=== PATIENT | female | born 1970 | race Caucasian/White ===

== ENCOUNTER → 2016-09-24 | Outpatient (CLI) | payer BC, OTHER ==
[~2016-09-24] MED LIST: ATV5X PO; BSP/10 PO; CYCL10TA6 PO; DILT120C41 PO; PROG100C6 PO; PROM12.57 PO
--- NOTE | 2016-09-24 15:58 | DIAGNOSTIC IMAGING REPORT ---
THYROID ULTRASONOGRAPHY CLINICAL HISTORY: Thyroid nodule COMPARISON STUDY: January 16, 2015 FINDINGS: The right lobe of the thyroid measures 4.4 x 1.6 x 1.4 cm. The left lobe measures 5.1 x 1.5 x 1.5 cm. Both lobes are heterogeneous in echotexture. There is a circumscribed anechoic left lobe thyroid nodule measuring 4 mm. IMPRESSION: Heterogeneous thyroid gland. 4 mm circumscribed anechoic left lobe thyroid nodule. No suspicious nodules are visualized. Electronically signed by: Jose Hughes M.D. 09/24/2016 3:57 PM Dictated Date/Time: 09/24/2016 3:55 PM
== END | disposition home or self-care (01) ==
LOC: C.ULTR 15:38
PROVIDERS: ATTEND Nurse Practitioner
DX: E04.1 Nontoxic single thyroid nodule (principal)

== ENCOUNTER → 2016-10-07 | Outpatient (CLI) | payer BC, OTHER ==
--- NOTE | 2016-10-07 15:46 | DIAGNOSTIC IMAGING REPORT ---
RIGHT ANKLE MIN 3 VIEWS CLINICAL HISTORY: Right ankle pain COMPARISON: None. DISCUSSION: No fractures or subluxations are visualized. The ankle mortise appears intact on these nonstress views. There is an Achilles insertional spur. IMPRESSION: No evidence of fracture. No evidence of erosive disease. Electronically signed by: Jose Hughes M.D. 10/07/2016 3:45 PM Dictated Date/Time: 10/07/2016 3:44 PM
--- NOTE | 2016-10-07 15:47 | DIAGNOSTIC IMAGING REPORT ---
LEFT ANKLE MIN 3 VIEWS CLINICAL HISTORY: Left ankle pain COMPARISON: None. DISCUSSION: No fractures are visualized. There are no subluxations. There is no erosive disease. IMPRESSION: No evidence of fracture. No evidence of erosive disease. Electronically signed by: Jose Hughes M.D. 10/07/2016 3:45 PM Dictated Date/Time: 10/07/2016 3:45 PM
== END | disposition home or self-care (01) ==
LOC: C.RDSM 15:30
PROVIDERS: ATTEND Family Medicine
DX: M25.571 Pain in right ankle and joints of right foot (principal); M25.572 Pain in left ankle and joints of left foot

== ENCOUNTER → 2016-12-17 | Outpatient (CLI) | payer BC, OTHER ==
[2016-12-17 12:37] LABS: ALT/SGPT 16 U/L (12-78); AST/SGOT 7 U/L (15-37); BLOOD UREA NITROGEN 14 mg/dl (7-18); BUN/CREATININE RATIO 19.4 (10-20); CALCIUM 8.8 mg/dl (8.5-10.1); CARBON DIOXIDE 26 mmol/L (21-32); CHLORIDE 107 mmol/L (98-107); CHOLESTEROL 205 mg/dl (0-200); CREATININE 0.71 mg/dl (0.60-1.20); GLUCOSE 83 mg/dl (70-99); POTASSIUM 3.9 mmol/L (3.5-5.1); SODIUM 140 mmol/L (136-145); TRIGLYCERIDES 102 mg/dl (0-150); VERY LOW DENSITY LIPOPROT CALC 20 mg/dl
[2016-12-17 12:47] LABS: ALB/GLOB RATIO 1.2 (0.9-2); ALKALINE PHOSPHATASE 37 U/L (45-117); CHOLESTEROL/HDL RATIO 3.3; HDL CHOLESTEROL 62 mg/dl; LDL CHOLESTEROL CALCULATED 123 mg/dl
== END | disposition home or self-care (01) ==
LOC: C.LABBFT 07:31
PROVIDERS: ATTEND Nurse Practitioner
DX: E78.5 Hyperlipidemia, unspecified (principal); I10 Essential (primary) hypertension

== ENCOUNTER 2017-02-25 11:37 | Emergency (ER) | payer OTHER, BC ==
[~2017-02-25] VITALS: Ht 157.5 cm; Wt 65.8 kg
[~2017-02-25 11:37] MED LIST changes: -CYCL10TA6 PO
[2017-02-25 11:40] VITALS: BP 154/100; PULSE 74; TEMP 37.1; O2SAT 96; Ht 157.5 cm; Wt 65.8 kg
[2017-02-25] MEDS ORDERED: ACETAMINOPHEN 500 MG TAB PO STA (11:48)
--- NOTE | 2017-02-25 12:13 | EMERGENCY ROOM VISIT NOTE ---
ED Visit Note First contact with patient: 11:44 CHIEF COMPLAINT: Wrist injury HISTORY OF PRESENT ILLNESS: This 46-year-old female patient presents to the emergency department by personal vehicle complaining of pain in the right hand and wrist after an injury 2 days ago. The patient states she was running, tripped and fell forward landing on both of her knees and her right outstretched hand. The patient is able to move their wrist. The patient states the pain is aching/throbbing and 6/10. No laceration, no weakness. No numbness or tingling. She also complains of some muscle pain that has developed in her left upper shoulder and back. The patient denies any other injury. The patient is able to move their fingers, elbows, and shoulders without difficulty. The patient has not had a previous fracture to this wrist. The patient has taken ibuprofen and applied ice for the pain, with minimal improvement. She is right- hand dominant. REVIEW OF SYSTEMS: A 6 system review of systems was performed with positives and pertinent negatives in the HPI. ALLERGIES: Reviewed in chart MEDICATIONS: Reviewed in chart PMH: Reviewed in chart SOCIAL HISTORY: Lives at home. Denies tobacco use, alcohol, recreational drug use. PHYSICAL EXAM: Vital Signs: Reviewed Nurse's notes, vital signs stable. GENERAL : Pleasant and cooperative, in no acute distress, but appears to be in pain, well-developed, well-nourished. NEURO: Alert and oriented to person place and time. Normal sensation to light and sharp touch. MUSCULOSKELETAL: There is no deformity of the right wrist. There is tenderness, bruising, and edema over distal right wrist and thenar eminence. There is snuff box tenderness. Range of motion is intact, slightly limited due to pain. There is no tenderness of the elbow, hand or fingers. Enzyme Chemist strength 5/5. Radial pulse 2+. There is tenderness of the left posterior shoulder and upper back to palpation, mild muscle spasm noted. There is full range of motion of the left shoulder joint with no pain. There is no neck pain or midline tenderness. SKIN: Normal and intact. The hand is warm and well perfused with capillary refill less than 2 seconds. EMERGENCY DEPARTMENT COURSE: I examined the patient. An X-ray of the right wrist was reviewed by myself and radiologist and showed no acute fracture. Given the nature of her injury and the snuff box tenderness, we'll treat for potential navicular fracture. A thumb spica splint was placed under my direction and the position was satisfactory. Neurovascular status rechecked and intact. Patient requested perception for muscle relaxer for her shoulder strain , Flexeril prescription was sent to pharmacy for her. Patient was instructed to follow up with her PCP and her orthopedic surgeon. The patient was discharged home in good condition and ambulatory. Problem List Medical Problems: (1) Anxiety Status: Chronic (2) Arthritis Status: Chronic (3) Hypercholesteremia Status: Resolved (4) Hypertension Status: Resolved (5) Reflux Status: Chronic (6) Seizure disorder Status: Chronic (7) Thyroid disease Status: Chronic Surgical Problems: (1) H/O exploratory laparotomy Status: Resolved (2) S/P section Status: Resolved Current/Historical Medications Scheduled Buspirone HCl (Buspirone HCl), 5 MG PO BID Buspirone HCl (Buspirone HCl), 10 MG PO HS Cyclobenzaprine Hcl (Flexeril), 10 MG PO TID Diltiazem Hcl (Dilt-Xr), 120 MG PO DAILY Scheduled PRN Lorazepam (Lorazepam), 0.5 MG PO BID PRN for Anxiety Allergies Coded Allergies: Lamotrigine (Verified Allergy, Severe, throat tightness/hives, 02/25/17) Vancomycin (Unverified Allergy, Severe, INCREASED HR, 02/25/17) Penicillins (Unverified Allergy, Unknown, HIVES, 02/25/17) Prednisone (Unverified Allergy, Unknown, HIVES, RACOON EYES, 02/25/17) Vital Signs Date Time Temp Pulse Resp B/P (MAP) Pulse Ox O2 Delivery O2 Flow Rate FiO2 02/25/17 11:40 37.1 74 16 154/100 96 Room Air Medications Administered Medications (Trade) Dose Ordered Sig/Jose Route Start Time Stop Time Status Last Admin Dose Admin Acetaminophen (Tylenol Tab) 1,000 mg NOW STAT PO 02/25/17 11:48 02/25/17 11:50 DC 02/25/17 12:06 1,000 MG Departure Information Impression Primary Impression: Right wrist sprain Additional Impression: Muscle strain of left shoulder region Dispostion Home / Self-Care Condition GOOD Prescriptions Cyclobenzaprine Hcl (FLEXERIL) 10 Mg Tab 10 MG PO TID for muss, #6 TAB Prov: [place], BKate, NETWORK MANAGER 02/25/17 Referrals Osmel Panchal M.D. (PCP) Kush Caba M.D. Patient Instructions ED Fx Wrist Navicular Poss, ED Spasm Muscle, My [facility] Additional Instructions Wear the wrist splint for comfort. You may remove for showering, but keep it on at all other times until you have follow up with orthopedics. Ice and keep the wrist elevated for 24-48 hrs. Ibuprofen 800mg every 8 hours and Tylenol 1000 mg every 8 hours as needed for the pain. You may alternate between these medications every 4 hours if needed. Flexeril every 8 hours as needed for muscle spasms. This medication may make you drowsy, use caution when taking it and do not drive or drink alcohol while you are taking it. Follow up with orthopedic surgery in the next week--keep your scheduled appointment on Tuesday, to reassess your wrist pain. Follow-up with your family doctor as needed. Problem Qualifiers Primary Impression: Right wrist sprain Encounter type: initial encounter Qualified Codes: S63.501A - Unspecified sprain of right wrist, initial encounter Additional Impression: Muscle strain of left shoulder region Encounter type: initial encounter Qualified Codes: S46.912A - Strain of unspecified muscle, fascia and tendon at shoulder and upper arm level, left arm , initial encounter
--- NOTE | 2017-02-25 12:24 | DIAGNOSTIC IMAGING REPORT ---
RIGHT WRIST 5 VIEWS CLINICAL HISTORY: Fall with right arm pain and swelling. FINDINGS: 5 views of the right wrist are obtained. No prior studies are available for comparison at the time of dictation. The skeletal structures are well mineralized. No fracture is seen. The joint spaces of the wrist are well-maintained. The overlying soft tissues are within normal limits. IMPRESSION: There is no radiographic evidence of right wrist fracture. Electronically signed by: Clarence Wilcox M.D. 02/25/2017 12:23 PM Dictated Date/Time: 02/25/2017 12:20 PM
[2017-02-25] MEDS ORDERED: CYCL10TA6 PO (12:35)
== END 2017-02-25 12:58 | disposition home or self-care (01) ==
LOC: C.EDB 11:39 → C.EDD 12:58
DX: S63.501A Unspecified sprain of right wrist, initial encounter (principal); S46.912A Strain of unspecified muscle, fascia and tendon at shoulder and upper arm level, left arm, initial encounter; W19.XXXA Unspecified fall, initial encounter; F41.9 Anxiety disorder, unspecified; M19.90 Unspecified osteoarthritis, unspecified site; K21.9 Gastro-esophageal reflux disease without esophagitis; E03.9 Hypothyroidism, unspecified; R56.9 Unspecified convulsions

== ENCOUNTER → 2017-03-11 | Outpatient (CLI) | payer OTHER ==
[~2017-03-11] MED LIST changes: -PROG100C6 PO; -PROM12.57 PO
--- NOTE | 2017-03-11 16:05 | DIAGNOSTIC IMAGING REPORT ---
L WRIST W/NAVICULAR MIN 3 VIEWS CLINICAL HISTORY: Left wrist pain following fall. COMPARISON: None FINDINGS: Alignment of the left wrist is anatomic. No acute fracture is identified. No suspicious osseous lesion is present. Carpal bones are intact. IMPRESSION: No acute fracture or dislocation of the left wrist. Electronically signed by: Mihai Fuentes M.D. 03/11/2017 4:03 PM Dictated Date/Time: 03/11/2017 4:02 PM
== END | disposition home or self-care (01) ==
LOC: C.RAD1850 15:00
PROVIDERS: ATTEND Nurse Practitioner Family
DX: S69.92XA Unspecified injury of left wrist, hand and finger(s), initial encounter (principal); W19.XXXA Unspecified fall, initial encounter

== ENCOUNTER → 2017-05-25 | Outpatient (CLI) | payer BC ==
[~2017-05-25] MED LIST changes: +AZITTAB PO; +CONJ0.453 PO; +CYCL10TA6 PO; +IBUP-1050 PO; +LISI-725 PO
--- NOTE | 2017-05-26 12:47 | MAMMOGRAPHY REPORT ---
BILATERAL DIGITAL SCREENING MAMMOGRAM TOMOSYNTHESIS WITH CAD: 05/25/2017 TECHNIQUE: Breast tomosynthesis in addition to standard 2D mammography was performed. Current study was also evaluated with a Computer Aided Detection (CAD) system. COMPARISON: Comparison is made to exams dated: 07/30/2015 ultrasound, 07/30/2015 mammogram, 12/17/2014 ma mmogram, 12/17/2014 ultrasound, 04/12/2014 mammogram, and 03/29/2014 mammogram - [facility]. BREAST COMPOSITION: There are scattered areas of fibroglandular density in both breasts. FINDINGS: No suspicious masses, calcifications, or areas of architectural distortion are noted in ei ther breast. There has been no significant interval change compared to prior exams. A biopsy marker clip is again noted within the left upper outer quadrant. IMPRESSION: ACR BI-RADS CATEGORY 2: BENIGN There is no mammographic evidence of malignancy. A 1 year screening mammogram is recommended. The pa tient will receive written notification of the results. Approximately 10% of breast cancers are not detected with mammography. A negative mammographic report should not delay biopsy if a clinically suggestive mass is present. Viridiana Crystal M.D. ah/:05/25/2017 15:45:17 Machine Stoppage Frequency Checker: Ariela MICHAUD(Naveen)(M), [facility] letter sent: Normal 1/2 BI-RADS Code: ACR BI-RADS Category 2: Benign
== END | disposition home or self-care (01) ==
LOC: C.MAMM 12:09
PROVIDERS: ATTEND Obstetrics & Gynecology
DX: Z12.31 Encounter for screening mammogram for malignant neoplasm of breast (principal)

== ENCOUNTER 2017-06-03 13:47 | Emergency (ER) | payer BC ==
[~2017-06-03] VITALS: Ht 157.5 cm; Wt 68.3 kg
[~2017-06-03 13:47] MED LIST changes: -AZITTAB PO; -CONJ0.453 PO; -CYCL10TA6 PO; -IBUP-1050 PO; -LISI-725 PO
[2017-06-03 13:54] VITALS: TEMP 36.6; Ht 157.5 cm; Wt 68.3 kg
[2017-06-03] MEDS ORDERED: CONJ0.453 PO (14:07)
[2017-06-03 14:36] LABS: BASO % 0.4 %; BASO ABS # 0.04 K/uL (0-0.2); EOS % 3.1 %; EOS ABS # 0.33 K/uL (0-0.5); HEMATOCRIT 38.6 % (37-47); HEMOGLOBIN 13.3 g/dL (12.0-16.0); IG# 0.03 K/uL (0.00-0.02); LYMPH % 18.5 %; LYMPH ABS # 1.96 K/uL (1.2-3.4); MEAN CELL VOLUME 87.1 fL (80-100); MEAN CORPUSCULAR HGB CONC 34.5 g/dl (32-36); MEAN PLATELET VOLUME 9.9 fL (7.4-10.4); MONO % 4.6 %; MONO ABS # 0.49 K/uL (0.11-0.59); NEUT % 73.1 %; NEUT ABS # 7.76 K/uL (1.4-6.5); PLATELET COUNT 251 K/uL (130-400); RED CELL DISTRIBUTION WIDTH CV 12.3 % (11.5-14.5); RED CELL DISTRIBUTION WIDTH SD 39.7 fL (36.4-46.3); WHITE BLOOD COUNT 10.61 K/uL (4.8-10.8)
--- NOTE | 2017-06-03 14:40 | DIAGNOSTIC IMAGING REPORT ---
TWO VIEW CHEST CLINICAL HISTORY: Cough and fever. FINDINGS: PA and lateral chest radiographs are compared to study dated 10/12/2015. The cardiomediastinal silhouette is unremarkable. The lungs and pleural spaces are clear. There is no pneumothorax. The bony thorax appears intact. IMPRESSION: No active disease in the chest. Electronically signed by: Clarence Wilcox M.D. 06/03/2017 2:38 PM Dictated Date/Time: 06/03/2017 2:35 PM
[2017-06-03 14:55] LABS: CALCIUM 8.8 mg/dl (8.5-10.1); CREATININE 0.62 mg/dl (0.60-1.20); POTASSIUM 3.6 mmol/L (3.5-5.1)
[2017-06-03 15:01] LABS: INFLUENZA B ANTIGEN Neg for Influ B (NEG)
[2017-06-03] MEDS ORDERED: AZITTAB PO (15:05)
--- NOTE | 2017-06-03 15:06 | EMERGENCY ROOM VISIT NOTE ---
History First contact with patient: 13:58 Chief Complaint: THROAT PAIN/INJURY Stated Complaint: SORE THROAT,YELLOW MUCUS FROM NOSE/CHEST,TIRED,WEA History of Present Illness The patient is a 46 year old female who presents to the Emergency Room with complaints of head congestion, fever, cough and chest congestion. The patient states that Tuesday and Tuesday she had a lot of head pressure and had a temperature of 101. Since that time she has a lot of postnasal drainage and at night she is coughing secondary to the drainage. The patient states she had a sore throat but that has improved. The patient has not taken anything over-the- counter for her cold symptoms since she had high blood pressure. She did take Tylenol today. The patient states her family members with similar symptoms. The patient also states that she is allergic to steroids. Review of Systems 10 system review was performed and was negative unless stated otherwise history of present illness. Past Medical/Surgical History Medical Problems: (1) Anxiety (2) Arthritis (3) Hypercholesteremia (4) Hypertension (5) Reflux (6) Seizure disorder (7) Thyroid disease Surgical Problems: (1) H/O exploratory laparotomy (2) S/P section Family History Cancer Diabetes mellitus Heart disease Hypertension Kidney disease Kidney stones Lung disease Social History Smoking Status: Former Smoker Alcohol Use: occasionally Drug Use: none Marital Status: Housing Status: lives with family Occupation Status: employed Current/Historical Medications Scheduled Buspirone HCl (Buspirone HCl), 5 MG PO BID Buspirone HCl (Buspirone HCl), 10 MG PO HS Diltiazem Hcl (Dilt-Xr), 120 MG PO DAILY Estrog Conj/Medryoxyprog Acet (Prempro 0.45MG/1.5MG), 1 TAB PO DAILY Scheduled PRN Lorazepam (Lorazepam), 0.5 MG PO BID PRN for Anxiety Physical Exam Vital Signs Date Time Temp Pulse Resp B/P (MAP) Pulse Ox O2 Delivery O2 Flow Rate FiO2 06/03/17 13:58 98 Room Air 06/03/17 13:54 36.6 80 20 160/95 98 Room Air Physical Exam PHYSICAL EXAM: Vital Signs were reviewed: Temperature 36.6, blood pressure 160/ 95, pulse 80, respiratory rate 20 Reviewed Nurse's notes and agree. Oxygen saturation is 98 % on room air which is normal . GENERAL: 22-year-old male appears in no acute distress. MENTAL STATUS: Alert, oriented, coherent. EARS: Canals clear. TMs good light reflex, no erythema or fluid level noted. NOSE: Nasal mucosa with moderate erythema engorgement. PHARYNX: Minimal erythema, no edema noted. No exudate noted. Airway is adequate. NECK: Supple, non-tender. No lymphadenopathy noted. LUNGS: Clear to auscultation without wheezes rales or rhonchi. CARDIAC: Regular rate and rhythm without murmur. SKIN: No rashes noted. Medical Decision & Procedures ER Provider Diagnostic Interpretation: TWO VIEW CHEST CLINICAL HISTORY: Cough and fever. FINDINGS: PA and lateral chest radiographs are compared to study dated 10/12/2015. The cardiomediastinal silhouette is unremarkable. The lungs and pleural spaces are clear. There is no pneumothorax. The bony thorax appears intact. IMPRESSION: No active disease in the chest. Electronically signed by: Clarence Wilcox M.D. 06/03/2017 2:38 PM Dictated Date/Time: 06/03/2017 2:35 PM Laboratory Results 06/03/17 14:15 Red Blood Count 4.43, Mean Corpuscular Volume 87.1, Mean Corpuscular Hemoglobin 30.0, Mean Corpuscular Hemoglobin Concent 34.5, Mean Platelet Volume 9.9, Neutrophils (%) (Auto) 73.1, Lymphocytes (%) (Auto) 18.5, Monocytes (%) (Auto) 4.6, Eosinophils (%) (Auto) 3.1, Basophils (%) (Auto) 0.4, Neutrophils # (Auto) 7.76, Lymphocytes # (Auto) 1.96, Monocytes # (Auto) 0.49, Eosinophils # (Auto) 0.33, Basophils # (Auto) 0.04 06/03/17 14:15 Test 06/03/17 14:15 White Blood Count 10.61 K/uL (4.8-10.8) Red Blood Count 4.43 M/uL (4.2-5.4) Hemoglobin 13.3 g/dL (12.0-16.0) Hematocrit 38.6 % (37-47) Mean Corpuscular Volume 87.1 fL (80-100) Mean Corpuscular Hemoglobin 30.0 pg (25-34) Mean Corpuscular Hemoglobin Concent 34.5 g/dl (32-36) Platelet Count 251 K/uL (130-400) Mean Platelet Volume 9.9 fL (7.4-10.4) Neutrophils (%) (Auto) 73.1 % Lymphocytes (%) (Auto) 18.5 % Monocytes (%) (Auto) 4.6 % Eosinophils (%) (Auto) 3.1 % Basophils (%) (Auto) 0.4 % Neutrophils # (Auto) 7.76 K/uL (1.4-6.5) Lymphocytes # (Auto) 1.96 K/uL (1.2-3.4) Monocytes # (Auto) 0.49 K/uL (0.11-0.59) Eosinophils # (Auto) 0.33 K/uL (0-0.5) Basophils # (Auto) 0.04 K/uL (0-0.2) RDW Standard Deviation 39.7 fL (36.4-46.3) RDW Coefficient of Variation 12.3 % (11.5-14.5) Immature Granulocyte % (Auto) 0.3 % Immature Granulocyte # (Auto) 0.03 K/uL (0.00-0.02) Anion Gap 5.0 mmol/L (3-11) Est Creatinine Clear Calc Drug Dose 104.9 ml/min Estimated GFR () 127.1 Estimated GFR (Non- 109.7 BUN/Creatinine Ratio 13.4 (10-20) Calcium Level 8.8 mg/dl (8.5-10.1) Influenza Type A Antigen Neg for Influ A (NEG) Influenza Type B Antigen Neg for Influ B (NEG) ED Course The patient was evaluated. The patient's EMR medication list were reviewed. IV access was obtained. CBC differential and renal profile was ordered. Rapid influenza was negative for influenza A and influenza B. Chest x-ray was ordered interpreted by the radiologist and myself as above without any acute findings. Labs are reviewed and were unremarkable. White count was normal. The patient was informed of all findings. The patient was discharged home in stable condition. Medical Decision Differential diagnosis include acute sinusitis, bronchitis, pneumonia, influenza , viral URI [place] Drug Monitoring Program Search Results: patient reviewed within database Medication Reconcilliation Current Medication List: was personally reviewed by me Blood Pressure Screening Patient's blood pressure: Elevated blood pressure Blood pressure disposition: Elevated BP felt to be situational Impression Primary Impression: Acute sinusitis Departure Information Dispostion Home / Self-Care Condition GOOD Prescriptions Azithromycin (ZITHROMAX Z-LUIS A) 250 Mg Tab 0 PO UD, #1 PKT Prov: Akiko hWite PA-C 06/03/17 Referrals Deidra Stevens M.D.(GAME PRESERVE MANAGER/OB) (PCP) Forms HOME CARE DOCUMENTATION FORM, IMPORTANT VISIT INFORMATION, WORK / SCHOOL INSTRUCTIONS Patient Instructions ED Sinusitis Abx Tx, My [facility] Additional Instructions Take Zithromax as prescribed. Tylenol and/or ibuprofen as needed for fever or pain. Recommend [id number] Coricidin HBP for 5 days. If symptoms persist or worsen, follow with family doctor. Problem Qualifiers Primary Impression: Acute sinusitis Sinusitis location: unspecified location Recurrence: non-recurrent Qualified Codes: J01.90 - Acute sinusitis, unspecified
[2017-06-03 15:15] VITALS: BP 125/84; PULSE 85; O2SAT 97
== END 2017-06-03 15:16 | disposition home or self-care (01) ==
LOC: C.EDB 13:49 → C.EDD 15:16
DX: J01.90 Acute sinusitis, unspecified (principal); I10 Essential (primary) hypertension; E78.00 Pure hypercholesterolemia, unspecified; K21.9 Gastro-esophageal reflux disease without esophagitis; G40.909 Epilepsy, unspecified, not intractable, without status epilepticus; E07.9 Disorder of thyroid, unspecified; F41.9 Anxiety disorder, unspecified; M19.90 Unspecified osteoarthritis, unspecified site; Z98.890 Other specified postprocedural states; Z87.891 Personal history of nicotine dependence; Z79.899 Other long term (current) drug therapy; Z80.9 Family history of malignant neoplasm, unspecified; Z83.3 Family history of diabetes mellitus; Z82.49 Family history of ischemic heart disease and other diseases of the circulatory system; Z84.1 Family history of disorders of kidney and ureter

== ENCOUNTER → 2017-08-23 | Outpatient (CLI) | payer OTHER | END | disposition home or self-care (01) | LOC: C.LABBFT 13:57 | PROVIDERS: ATTEND Physician Assistant Medical | DX: E07.9 Disorder of thyroid, unspecified (principal) ==

== ENCOUNTER → 2017-09-30 | Outpatient (CLI) | payer OTHER ==
--- NOTE | 2017-09-30 17:29 | DIAGNOSTIC IMAGING REPORT ---
THORACIC SPINE 3 VIEWS ROUTINE HISTORY: 46 years-old Female M53.9 Disorder of thoracic [id number] acute mid back pain COMPARISON: CTA chest 09/30/2017 TECHNIQUE: 3 views of the thoracic spine FINDINGS: There are 12 thoracic type rib-bearing vertebral segments present. No acute fracture or subluxation. Mild multilevel endplate spurring without significant intervertebral disc space narrowing. Imaged lung mendosa and soft tissues are unremarkable. IMPRESSION: No acute fracture or subluxation. The above report was generated using voice recognition software. It may contain grammatical, syntax or spelling errors. Electronically signed by: Johan Truong M.D. 09/30/2017 5:28 PM Dictated Date/Time: 09/30/2017 5:26 PM
== END | disposition home or self-care (01) ==
LOC: C.RAD 17:08
PROVIDERS: ATTEND Physician Assistant Medical
DX: M53.9 Dorsopathy, unspecified (principal)

== ENCOUNTER → 2017-09-30 | Outpatient (CLI) | payer OTHER ==
[~2017-09-30] MED LIST changes: +OPTIRAY 320 IV PRN
--- NOTE | 2017-09-30 09:29 | DIAGNOSTIC IMAGING REPORT ---
CT CHEST ANGIO WITH CONTRAST CT DOSE: 211.53 mGy.cm CLINICAL HISTORY: Hypertension Atypical chest pain TECHNIQUE: The patient was scanned in a dynamic helical fashion during intravenous administration of 118 cc of Optiray 320. MIP imaging was performed. A dose lowering technique was utilized adhering to the principles of ALARA. COMPARISON STUDY: Chest x-ray dated 06/03/2017 FINDINGS: There is a 4 mm left lobe thyroid nodule. There is no evidence of thoracic aortic aneurysm. The ascending thoracic aorta measures 31 mm in diameter. There are no intimal flaps to indicate aortic dissection. There is a T11-12 anterior vertebral disc protrusion with associated osteophytes. This results in mild deformity of the posterior aspect of the lower thoracic aorta There are no pulmonary artery filling defects to indicate acute pulmonary embolism. There are no pathologically enlarged axillary, mediastinal, or hilar lymph nodes. There are no pleural effusions. There is no focal pulmonary consolidation. No endobronchial lesions are visualized. There is a 2 mm calcified left lower lobe granuloma. No destructive skeletal lesions are visualized IMPRESSION: 1. No acute intrathoracic findings 2. No evidence of thoracic aortic aneurysm or dissection 3. T11-T12 anterior vertebral disc protrusion. There are associated osteophytes. This results in mild deformity of the posterior aspect of the lower thoracic aorta 4. No evidence of focal pulmonary consolidation Electronically signed by: Jose Hughes M.D. 09/30/2017 9:27 AM Dictated Date/Time: 09/30/2017 9:19 AM
== END | disposition home or self-care (01) ==
LOC: C.CTS 09:01
PROVIDERS: ATTEND Physician Assistant Medical
DX: R07.9 Chest pain, unspecified (principal); M51.24 Other intervertebral disc displacement, thoracic region

== ENCOUNTER → 2017-12-13 | Outpatient (CLI) | payer OTHER ==
[~2017-12-13] MED LIST changes: +CYCL10TA6 PO; +IBUP-1050 PO; +LISI-725 PO; -OPTIRAY 320 IV PRN
--- NOTE | 2017-12-13 14:01 | DIAGNOSTIC IMAGING REPORT ---
L-SPINE MIN 4 VIEWS ROUTINE CLINICAL HISTORY: Back pain status post trauma COMPARISON STUDY: 04/15/2012 FINDINGS: There is a mild lumbar dextroscoliosis. No fractures or subluxations are visualized. There are no erosive or destructive changes. There are mild degenerative changes present. IMPRESSION: 1. Mild dextroscoliosis 2. Mild degenerative change 3. No fractures identified Electronically signed by: Jose Hughes M.D. 12/13/2017 1:59 PM Dictated Date/Time: 12/13/2017 1:58 PM
== END | disposition home or self-care (01) ==
LOC: C.RADBC 13:39
PROVIDERS: ATTEND Physician Assistant Medical
DX: M54.5 Low back pain (principal); W19.XXXA Unspecified fall, initial encounter

== ENCOUNTER 2019-04-27 16:55 | Observation (INO) ==
[2019-04-27] MEDS ORDERED: ASPIRIN CHEW 324 MG PO STA (17:27)
[2019-04-27] MEDS ORDERED: NITROGLYCERIN 2% OINTMENT 30GM TUBE EXT SCH (17:45)
[2019-04-27 17:57] LABS: Basophils # (auto) 0.04 K/uL (0-0.2); Basophils % (auto) 0.6 %; Eosinophils # (auto) 0.42 K/uL (0-0.5); Eosinophils % (auto) 5.9 %; Hematocrit (blood only) 39.8 % (37-47); Hemoglobin 13.1 g/dL (12.0-16.0); Immature Granulocytes # (auto) 0.01 K/uL (0.00-0.02); Immature Granulocytes % (auto) 0.1 %; Lymphocytes # (auto) 2.02 K/uL (1.2-3.4); Lymphocytes % (auto) 28.5 %; Mean Corpuscular Hemoglobin 29.4 pg (25-34); Mean Corpuscular Hgb Conc 32.9 g/dL (32-36); Mean Corpuscular Volume 89.4 fL (80-100); Mean Platelet Volume 10.6 fL (7.4-10.4); Monocytes # (auto) 0.61 K/uL (0.11-0.59); Monocytes % (auto) 8.6 %; Neutrophils # (auto) 3.98 K/uL (1.4-6.5); Neutrophils % (auto) 56.3 %; Platelet Count 204 K/uL (130-400); RDW Coefficient of Variation 12.8 % (11.5-14.5); RDW Standard Deviation 41.4 fL (36.4-46.3); Red Blood Count 4.45 M/uL (4.2-5.4); White Blood Count 7.08 K/uL (4.8-10.8)
--- NOTE | 2019-04-27 18:08 | XRay Report ---
XR chest 1V portable HISTORY: Atypical Chest Pain COMPARISON: Chest 10/12/2015. FINDINGS: The lungs are clear. Cardiac silhouette is normal in size. No pleural effusions. No pneumot horax. IMPRESSION: No acute process. Electronically signed by: Anton Smith M.D. 04/27/2019 6:07 PM
--- NOTE | 2019-04-27 18:11 | CT Scan Report ---
HEAD CT NONCONTRAST CT DOSE: 537.48 mGy.cm HISTORY: Headache. TECHNIQUE: Multiaxial CT images of the head were performed without the use of intravenous contrast. A utomated exposure control was utilized for this study. A dose lowering technique was utilized adheri ng to the principles of ALARA. Comparison: Head CT 04/28/2016. Findings: The paranasal sinuses and mastoid air cells are clear. The calvarium and skull base are int act. The ventricles and sulci are within normal limits. There is no mass, hematoma, midline shift, or acute infarct. Impression: No acute intracranial abnormality. Electronically signed by: Anton Smith M.D. 04/27/2019 6:10 PM
[2019-04-27 18:19] LABS: Alanine Aminotransferase 15 U/L (12-78); Albumin Level 3.6 gm/dl (3.4-5.0); Aspartate Aminotransferase 9 U/L (15-37); BUN Creatinine Ratio 19.5 (10-20); Blood Urea Nitrogen 15 mg/dl (7-18); Carbon Dioxide 26 mmol/L (21-32); Chloride 108 mmol/L (98-107); Est GFR (African American) 107.3; Est GFR (Non-African American) 92.6; Glucose 98 mg/dl (70-99); Lipase 135 U/L (73-393); Potassium 3.7 mmol/L (3.5-5.1); Sodium 139 mmol/L (136-145)
[2019-04-27 18:24] LABS: Alkaline Phosphatase 34 U/L (45-117); Bilirubin,Total 0.4 mg/dl (0.2-1); Globulin 3.5 gm/dl (2.5-4.0); Total Protein 7.1 gm/dl (6.4-8.2); Troponin I < 0.015 ng/ml (0-0.045)
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
[2019-04-27] MEDS ORDERED: LORazepam 0.5 MG TAB PO PRN (22:07)
[2019-04-27] MEDS ORDERED: KETOROLAC 30 MG/ML VIAL IV PRN (22:07)
[2019-04-27] MEDS ORDERED: ACETAMINOPHEN 325 MG TAB PO PRN (22:07)
[2019-04-27] MEDS ORDERED: NITROGLYCERIN SL 0.4 MG/TAB TAB SL PRN (22:07)
[2019-04-27] MEDS ORDERED: HYDROmorphone INJ 0.5 MG/0.5 ML SYR IV PRN (22:07)
[2019-04-27] MEDS ORDERED: ONDANSETRON INJ 2 MG/ML 2 ML VIAL IV PRN (22:07)
[2019-04-27] MEDS ORDERED: HydrALAZINE HCL 20 MG/ML VIAL IV PRN (22:07)
[2019-04-27] MEDS ORDERED: KETOROLAC 30 MG/ML VIAL ONE (22:40)
[2019-04-27] MEDS ORDERED: HydrALAZINE HCL 20 MG/ML VIAL ONE (22:41)
[2019-04-27] MEDS ORDERED: PATIENT'S HEIGHT AND/OR WEIGHT NEEDED SCH (22:45)
[2019-04-28] MEDS ORDERED: LACTATED RINGER'S 1,000 ML IV SCH (00:05)
--- NOTE | 2019-04-28 00:51 | Billing Data ---
Coding Level of Care Code 01341 OBS Care - Level 3
[2019-04-28 06:29] LABS: BUN Creatinine Ratio 19.5 (10-20); Calcium 8.5 mg/dl (8.5-10.1); Creatinine Clr Calc Pharmacy 85.2 ml/min; Est GFR (African American) 122.8; Est GFR (Non-African American) 105.9; Potassium 3.8 mmol/L (3.5-5.1)
[2019-04-28 06:39] LABS: Thyroid Stimulating Hormone 4.88 uIu/ml (0.300-4.500)
[2019-04-28] MEDS ORDERED: dilTIAZem HCL 120 MG CAPCR PO SCH (09:00)
[2019-04-28] MEDS ORDERED: MULTIVITAMIN TAB PO SCH (09:00)
[2019-04-28] MEDS ORDERED: ENOXAPARIN INJ 40 MG/0.4 ML SYR SQ SCH (09:00)
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
[2019-05-02 10:18] LABS: Metanephrine, Plasma 27 pg/mL (<=57); Normetanephrine Plasma 67 pg/mL (<=148); Total Metanephrine Plasma 94 pg/mL (<=205)
== END 2019-04-28 13:05 | disposition home or self-care (01) ==
LOC: ED 16:55 → 2N 16:55 → SUATTDRO 21:25 → 2N 21:32